=== PATIENT | male | born 1960 | race Caucasian/White ===

== ENCOUNTER 2022-07-07 03:58 | Emergency (ER) | payer MEDICAID ==
[~2022-07-07] VITALS: Ht 175.3 cm; Wt 104.3 kg
[2022-07-07 05:40] LABS: BASOPHILS % 0.6 % (0.0-2.0); EOSINOPHILS % 1.4 % (0.0-5.0); HEMOGLOBIN. 17.5 g/dL (14.0-18.0); LYMPHOCYTES % 15.7 % (20.0-50.0); MEAN CORPUSCULAR HEMOGLOBIN 31.2 pg (28.0-32.0); MEAN CORPUSCULAR VOLUME 92.8 fL (80.0-94.0); MEAN PLATELET VOLUME 9.1 fl (7.4-10.4); MONOCYTES % 9.5 % (2.0-8.0); NEUTROPHILS % 72.8 % (40.0-76.0); PLATELET 283 x1000/uL (130-400); RED CELL DISTRIBUTION WIDTH 13.9 % (11.6-14.6)
[2022-07-07 05:51] LABS: CHLORIDE 108 mEq/L (98-107)
[2022-07-07 06:38] VITALS: BP 157/84
== END 2022-07-07 06:42 | disposition home or self-care (01) ==
LOC: ER 03:58
DX: I10 Essential (primary) hypertension (principal); E78.00 Pure hypercholesterolemia, unspecified
CPT/HCPCS: 36415; 71045; 80053; 83880; 84484; 85025; 93005; 99285

== ENCOUNTER 2022-09-26 00:42 | Emergency (ER) | payer MEDICAID ==
[~2022-09-26] VITALS: Ht 177.8 cm; Wt 105.0 kg
[2022-09-26 00:57] VITALS: BP 139/94; O2SAT 96
[2022-09-26] MEDS ORDERED: PRED10TA MT (04:02)
[2022-09-26] MEDS ORDERED: DOXY100T2 MT (04:02)
[2022-09-26] MEDS ORDERED: BENZ100C86 MT (04:02)
[2022-09-26 04:23] VITALS: PULSE 89; RESP 16; TEMP 98.6
== END 2022-09-26 04:25 | disposition home or self-care (01) ==
LOC: ER 00:42
DX: R05.9 Cough, unspecified (principal); J40 Bronchitis, not specified as acute or chronic; F17.200 Nicotine dependence, unspecified, uncomplicated; I10 Essential (primary) hypertension; E78.00 Pure hypercholesterolemia, unspecified
CPT/HCPCS: 71045; 99283

== ENCOUNTER 2022-12-23 21:02 | Emergency (ER) | payer MEDICAID ==
[~2022-12-23] VITALS: Ht 177.8 cm; Wt 100.0 kg
[~2022-12-23 21:02] MED LIST: BENZ100C86 MT; DOXY100T2 MT; PRED10TA MT
[2022-12-23 21:13] VITALS: O2SAT 97
[2022-12-23] MEDS ORDERED: LIDOCAINE 5% PATCH TOP SCH (22:00)
[2022-12-23] MEDS ORDERED: KETOROLAC 30MG/ML VIAL IM ONE (22:00)
[2022-12-24] MEDS ORDERED: CYCL5TAB MT (01:39)
[2022-12-24] MEDS ORDERED: LIDO700A15 TP (01:39)
[2022-12-24] MEDS ORDERED: KETOROLAC 30MG/ML VIAL IM NR (01:45)
[2022-12-24] MEDS ORDERED: LIDOCAINE 5% PATCH TOP SCH (01:45)
[2022-12-24] MEDS ORDERED: HYDROCODONE/ACETAMINOPHEN 5/325MG TABLET PO ONE (02:45)
[2022-12-24 04:15] VITALS: BP 170/105; PULSE 63; RESP 18; TEMP 97.5
== END 2022-12-24 04:19 | disposition home or self-care (01) ==
LOC: ER 21:02
DX: G89.29 Other chronic pain (principal); M54.50 Low back pain, unspecified; E78.00 Pure hypercholesterolemia, unspecified; I10 Essential (primary) hypertension
CPT/HCPCS: 99283; 96372; J1885